=== PATIENT | female | born 1965 | race Hispanic/Latino ===

== ENCOUNTER 2017-11-17 17:26 | Emergency (ER) | payer OTHER, MEDICARE ==
[2017-11-17 18:17] LABS: BASOPHILS % (AUTO) 0.7 % (0.0-5.0); EOSINOPHILS % (AUTO) 1.4 % (0.0-8.0); HEMATOCRIT 41.8 % (36-48); LYMPHOCYTES % (AUTO) 25.1 % (21.0-51.0); MEAN CORPUSCULAR HEMOGLOBIN 29.8 pg (27.0-33.0); MEAN CORPUSCULAR HGB CONC 32.3 g/dL (32.0-36.0); MEAN CORPUSCULAR VOLUME 92.2 fL (79-99); MONOCYTES % (AUTO) 5.4 % (3.0-13.0); NEUTROPHILS % (AUTO) 67.4 % (40.0-77.0); PLATELET COUNT (AUTO) 351 K/uL (130-400); RED BLOOD CELL COUNT(AUTO) 4.54 MIL/uL (4.00-5.50); RED CELL DISTRIBUTION WIDTH 13.6 % (11.0-15.5)
[2017-11-17 18:19] LABS: APPEARANCE,URINE CLOUDY (CLEAR); BILIRUBIN,URINE NEGATIVE (NEGATIVE); COLOR,URINE YELLOW (YELLOW); GLUCOSE, URINE (UA) NEGATIVE (NEGATIVE); KETONES,URINE NEGATIVE (NEGATIVE); LEUKOCYTE ESTERASE ,URINE TRACE (NEGATIVE); NITRATE,URINE NEGATIVE (NEGATIVE); OCCULT BLOOD,URINE NEGATIVE (NEGATIVE); PROTEIN,URINE 30 (NEGATIVE)
[2017-11-17 18:25] LABS: RBC,URINE 0-1 /HPF (0-1)
[2017-11-17 18:26] LABS: BACTERIA,URINE Moderate /HPF (None Seen)
[2017-11-17 18:27] LABS: CREATININE 1.2 mg/dL (0.5-1.5); POTASSIUM 3.8 mmol/L (3.5-5.1); SQUAMOUS EPITHELIAL CELL,UR Moderate /HPF (0-2)
[2017-11-17 18:31] LABS: ALBUMIN 3.3 g/dL (3.5-5.0); BILIRUBIN,TOTAL 0.3 mg/dL (0.2-1.0); TOTAL PROTEIN, SERUM 7.3 g/dL (6.0-8.3)
[2017-11-17] MEDS ORDERED: HYOSCYAMINE SULFATE 0.125 MG TAB.SUBL SL ONE (18:48)
== END 2017-11-17 21:10 | disposition home or self-care (01) ==
LOC: EDH 17:26
DX: R10.13 Epigastric pain (principal); J02.9 Acute pharyngitis, unspecified; R05 Cough; R11.0 Nausea; K21.9 Gastro-esophageal reflux disease without esophagitis; E78.5 Hyperlipidemia, unspecified; I10 Essential (primary) hypertension; G43.909 Migraine, unspecified, not intractable, without status migrainosus; E07.9 Disorder of thyroid, unspecified; Z98.890 Other specified postprocedural states
CPT/HCPCS: 36415; 71045; 76705; 80053; 81001; 82150; 83690; 85025; 93005

== ENCOUNTER 2018-08-17 07:14 | Day surgery (SDC) | payer OTHER, MEDICARE ==
[~2018-08-17] VITALS: Ht 172.7 cm; Wt 134.7 kg
[~2018-08-17 07:14] MED LIST: DULO60CA64 PO; ESOM40CA PO; LEVO50TA11 PO; MELA5TAB14 PO; METO100T14 PO; SIMV20TA6 PO; SUCR1TAB2 PO; TELM1TAB31 PO; TYLENOL PO
[2018-08-17] MEDS ORDERED: SODIUM CHLORIDE 0.9% 1000ML 1,000 ML IV ONE (07:16)
[2018-08-17 08:04] VITALS: BP 126/65
[2018-08-17] MEDS ORDERED: MIDAZOLAM HCL 1 MG/ML 2ML VIAL ONE (08:52)
[2018-08-17] MEDS ORDERED: GLYCOPYRROLATE 0.2 MG/ML 5 ML VIAL ONE (08:53)
[2018-08-17] MEDS ORDERED: PROPOFOL 10 MG/ML 20ML VIAL IV ONE (08:53)
[2018-08-17] MEDS ORDERED: LIDOCAINE HCL 1% 20 ML VIAL ONE (08:53)
[2018-08-17 09:38] VITALS: BP 126/64
[2018-08-17 09:43] VITALS: BP 123/64
[2018-08-17 09:48] VITALS: BP 126/60
[2018-08-17 09:53] VITALS: BP 130/62
[2018-08-17 09:58] VITALS: BP 138/62
--- NOTE | 2018-08-17 10:05 | NUR ---
DC PT DC HOME VIA WC,NO DISTRESS NOTED. DENIES ANY PAIN OR DISCOMFORTS. ACCOMPANIED BY FAMILY FRIEND.
== END 2018-08-17 10:05 | disposition home or self-care (01) ==
LOC: ENDO 07:14 → DAH 07:14 → ENDO 10:05
PROVIDERS: ATTEND Surgery
DX: K29.50 Unspecified chronic gastritis without bleeding (principal); K25.9 Gastric ulcer, unspecified as acute or chronic, without hemorrhage or perforation; K21.9 Gastro-esophageal reflux disease without esophagitis; K31.9 Disease of stomach and duodenum, unspecified; G47.30 Sleep apnea, unspecified; Z99.89 Dependence on other enabling machines and devices; I10 Essential (primary) hypertension; E66.01 Morbid (severe) obesity due to excess calories; M19.90 Unspecified osteoarthritis, unspecified site; Z79.899 Other long term (current) drug therapy; E78.00 Pure hypercholesterolemia, unspecified; E07.9 Disorder of thyroid, unspecified; Z87.19 Personal history of other diseases of the digestive system; Z98.890 Other specified postprocedural states; Z68.42 Body mass index [BMI] 45.0-49.9, adult
CPT/HCPCS: 43239; 82948 ×2; 88305; A4606; J2250; J2704; J3490; J7030; 43235

== ENCOUNTER → 2019-02-02 | Outpatient (CLI) | payer OTHER, MEDICARE ==
[~2019-02-02] MED LIST changes: +SIMV-43 PO; -SIMV20TA6 PO
== END | disposition home or self-care (01) ==
LOC: RAH 09:04
PROVIDERS: ATTEND Internal Medicine Gastroenterology
DX: K76.0 Fatty (change of) liver, not elsewhere classified (principal); R10.13 Epigastric pain
CPT/HCPCS: 76700